=== PATIENT | male | born 2005 | race African-American/Black ===

== ENCOUNTER 2024-11-22 14:04 | Emergency (ER) | payer BC, SELFPAY ==
[2024-11-22 14:05] VITALS: BP 124/77; PULSE 59; RESP 16; TEMP 36.2; O2SAT 99; BMI 25.8
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
== END 2024-11-22 17:57 | disposition home or self-care (01) ==
PROVIDERS: Emergency Provider Surgery; Visit Provider Surgery
DX: S32.039A Unspecified fracture of third lumbar vertebra, initial encounter for closed fracture (principal); V43.52XA Car driver injured in collision with other type car in traffic accident, initial encounter
CPT/HCPCS: 72131; 99282

== ENCOUNTER 2024-12-07 18:53 | Emergency (ER) | payer BC, SELFPAY ==
[2024-12-07 18:53] VITALS: BP 152/83; PULSE 79; RESP 16; TEMP 36.3; O2SAT 100; BMI 25.0
--- NOTE | 2024-12-07 19:08 | EKG12_ITS ---
Test Reason : CP Blood Pressure : */* mmHG Vent. Rate : 68 BPM Atrial Rate : 68 BPM P-R Int : 136 ms QRS Dur : 86 ms QT Int : 356 ms P-R-T Axes : 50 88 14 degrees QTcB Int : 378 ms Normal sinus rhythm Nonspecific T wave abnormality Abnormal ECG Confirmed by Venkat Alegria ([id number]), news videotape editor LORNE MOSES ([id number]) on 12/09/2024 10:59:06 AM Referred By: Confirmed By: Venkat Alegria
--- NOTE | 2024-12-07 19:09 | ED.VIS.CHEST ---
HPI History of Present Illness Chief Complaint: Chest Pain Detail of Chief Complaint: Chest pain Informant: patient Narrative Narrative: Patient presents with chest pain that started around 2 PM today. Describes a sharp pain in the center of his chest with deep breath. He tries to manage his breathing to help with the discomfort. He has had this type of discomfort since he was tachycardia patient denies recent surgery. He denies recent illness history of some but does not take any medications for it. PFSH PFSH Home Medications ?Medication ?Instructions ?Recorded ?Last Taken ?Type NK 12/02/24 Unknown History naproxen 500 mg tablet 500 mg PO BID #14 tabs 12/07/24 Unknown Rx Allergy/AdvReac Type Severity Reaction Status Date / Time No Known Allergies Allergy Verified 12/02/24 14:38 Social History (Updated 12/02/24 @ 14:40 by Eloina Gomez) Smoking Status: Former smoker alcohol intake: current alcohol intake frequency: holidays/special occasions only substance use type: marijuana and other details: has used marijuana in the past ROS ROS ED Review of Systems ROS Unobtainable: other Constitutional Constitutional ED: Reports lethargy; Denies chills, fever(s), sweats or weight loss Eyes Eyes: Denies blurry vision, change in vision or diplopia ENT ENT ED: Denies rhinorrhea or sore throat Cardiovascular Cardiovascular: Reports chest pain; Denies orthopnea or racing heartbeat Respiratory/Chest Respiratory/Chest: Denies cough, dyspnea, dyspnea on exertion, orthopnea or sputum Gastrointestinal Gastrointestinal: Denies abdominal pain, diarrhea, nausea or vomiting Genitourinary Genitourinary ED: Denies dysuria, hematuria or urinary frequency Musculoskeletal Musculoskeletal: Denies arthralgias, back pain, myalgias or neck pain Integumentary Denies abscess, Abrasions or rash Neurologic Neurologic: Denies headache(s) or weakness Psychiatric Psychiatric: Denies anxiety, depression or suicidal thoughts Endocrine Endocrinology: Denies polydipsia, polyphagia or polyuria Hematologic/Lymphatic Hematologic/Lymphatic: Denies easy bleeding, easy bruising or lymphadenopathy Allergic/Immunologic Allergic/Immunologic ED: Denies mouth swelling, tongue swelling or urticaria EXAM Physical Exam Const Vital Signs: 12/07/24 18:53 12/07/24 19:37 Temperature 97.4 F L Temperature Source Temporal Pulse Rate 79 Respiratory Rate 16 Respiratory Effort Normal Non-Labored Blood Pressure 152/83 H Blood Pressure Mean 106 Pulse Ox 100 Oxygen Delivery Method Room Air Positive well nourished and well developed General Appearance ED: well developed and NAD HEENT Reports TM's clear and moist mucous membranes normocephalic and atraumatic; Negative for trauma or tenderness Tympanic Membrane ED: Yes TM's clear Eyes PERRL and EOMs intact bilaterally General Eye ED: Negative for pale conjunctiva or scleral icterus Neck no lymphadenopathy, supple and no JVD General: Negative for tenderness Chest Wall inspection of chest normal and palpation of chest normal Chest: Negative for tenderness Resp normal respiratory effort and clear to auscultation bilaterally Effort and Inspection: Negative for respiratory distress or pain with movement Auscultation: Negative for rhonchi, wheezes or diminished lung sounds Cardio regular rate, regular rhythm, S1 normal heart sound, S2 normal heart sound and no murmurs Peripheral Pulses: pulses 2+ throughout GI normal to inspection, nondistended, normoactive bowel sounds, soft to palpation, non-tender, non-distended and no masses Back/Spine no CVA tenderness and no thoracic nor lumbar tenderness Extremity normal to inspection General Extremety ED: Negative for edema General Extremity: Negative for edema Neuro oriented x3, CN's II-XII intact bilaterally, no sensory deficits noted and gait normal Sensorium / Orientation: awake, alert, oriented to person, oriented to place and oriented to time Motor Exam: strength 5/5 throughout and strength abnormal Psych mental status grossly normal Skin no rashes or lesions noted and no wounds MDM MDM MDM Narrative Medical decision making narrative: Patient presents with chest pain it has been intermittent since he has been a young child. Describes a sharp pain with breathing. Denies any trauma to his chest. Denies recent travel or surgery. He goes to college at [employer] here but lives in [place]. EKG obtained on arrival showed sinus rhythm with ventricular rate of 68 bpm with no acute ST segment changes. CBC with differential showed a white count 6.9 with hemoglobin 14.6 and platelet count of 217. Sed rate was normal at less than 1. D-dimer was negative. 1 view chest x-ray obtained interpreted by myself as no evidence of infiltrate or pneumothorax or acute disease process. While in the department he did receive Toradol 30 mg IV. He did feel improved afterwards and is pain seems to have resolved. Lab Data Attestation: I reviewed the patient's lab results. Labs: Laboratory Results - last 24 hr 12/07/24 12/07/24 12/07/24 19:33 19:33 20:00 WBC Cancelled 6.9 Corrected WBC Cancelled RBC Cancelled 4.60 Hgb Cancelled 14.6 Hct Cancelled 42.1 MCV Cancelled 91.5 MCH Cancelled 31.7 MCHC Cancelled 34.7 RDW Std Deviation Cancelled 40.8 RDW Coeff of Cassandra Cancelled 12.2 Plt Count Cancelled 217 MPV Cancelled 11.5 Immature Gran % (Auto) Cancelled 0.100 Neut % (Auto) Cancelled 55.1 Lymph % (Auto) Cancelled 37.0 [place] % (Auto) Cancelled 6.7 Eos % (Auto) Cancelled 0.7 Baso % (Auto) Cancelled 0.4 Absolute Neuts (auto) Cancelled 3.8 Absolute Lymphs (auto) Cancelled 2.55 Total Counted Cancelled Neutrophils % (Manual) Cancelled Band Neutrophils % Cancelled Lymphocytes % (Manual) Cancelled Monocytes % (Manual) Cancelled Eosinophils % (Manual) Cancelled Basophils % (Manual) Cancelled Metamyelocytes % Cancelled Myelocytes % Cancelled Promyelocytes % Cancelled Blast Cells % Cancelled Plasma Cell % (Manual) Cancelled Other Cells % Cancelled Nucleated RBC % Cancelled 0 Nucleated RBCs/100 WBC Cancelled Differential Comment Cancelled Diff Path Review Cancelled Hypersegmented Neuts Cancelled Atypical Lymphocytes Cancelled Reactive Lymphocytes Cancelled Smudge Cells Cancelled Toxic Granulation Cancelled Toxic Vacuolation Cancelled Dohle Bodies Cancelled Marifer Rods Cancelled Platelet Estimate Cancelled Plt Morphology Comment Cancelled RBC Morphology Cancelled Cancelled Polychromasia Cancelled Hypochromasia Cancelled Basophilic Stippling Cancelled Anisocytosis Cancelled Microcytosis Cancelled Macrocytosis Cancelled Spherocytes Cancelled Sickle Cells Cancelled Target Cells Cancelled Tear Drop Cells Cancelled Ovalocytes Cancelled Stomatocytes Cancelled [place] Bodies Cancelled Jacob Cells Cancelled Bite Cells Cancelled Crenated Cell Cancelled Acanthocytes (Spur) Cancelled Rouleaux Cancelled Schistocytes Cancelled ESR Cancelled < 1 D-Dimer Quant (PE/DVT) 0.27 Radiography Diagnostic Testing: Clinical Impression(s) from Imaging Studies Chest X-Ray 12/07/24 19:30 IMPRESSION: NEGATIVE CHEST. Reading Location: [facility] 1 view chest x-ray obtained interpreted by myself as no evidence of infiltrate or pneumothorax or acute disease process. Radiology in agreement. EKG Initial EKG: Attestation: I personally reviewed and interpreted this EKG as follows: Comments: Sinus rhythm with ventricular rate of 68 bpm with no acute ST segment change Discharge Plan Triage Chief Complaint: Chest Pain ED Provider: Andres Ny Dx/Rx/DC Orders Clinical Impression: Chest pain, Pleurisy Instructions: ED Chest Pain, Uncertain Cause, ED Pleurisy Prescriptions: New naproxen 500 mg tablet 500 mg PO BID Qty: 14 0RF No Action NK Primary Care Provider: Care Physician,No Primary Referrals: Abdirahman Pleitez MD [Med Staff - Active Staff] - 3-5 Days Care Physician,No Primary [Primary Care Provider] - Print Language: Sami Disposition Disposition: Home, Self Care
[2024-12-07] MEDS: Ketorolac 30 MG/ML Syringe IV (19:27)
--- NOTE | 2024-12-07 19:30 | RAD_ITS ---
PROCEDURE: CHEST 1 VIEW (PORTABLE) REASON FOR EXAM: Chest pain. TECHNIQUE: Frontal view of the chest. COMPARISON: None FINDINGS: The heart size is normal. The lungs are clear. RAD/Chest 1 View (Portable) IMPRESSION: NEGATIVE CHEST. Reading Location: [facility]
[2024-12-07 20:10] LABS: Absolute Lymphocyte Count 2.55 X10^3/uL (0.83-4.51); Absolute Neutrophil Count 3.8 X10^3/uL (2.0-7.7); Basophil# 0.03 X10^3/uL; Basophil% 0.4 % (0-1); Eosinophil# 0.05 X10^3/uL; Eosinophils% 0.7 % (0-5); Hematocrit 42.1 % (40-54); Hemoglobin 14.6 g/dL (13.0-16.5); Lymphocyte # 2.55 X10^3/ul (0.83-4.51); Mean Corp Hgb Conc 34.7 g/dL (32-36); Mean Corpuscular Hgb 31.7 pg (27.0-32.0); Mean Corpuscular Volume 91.5 fL (80-94); Mean Platelet Vol. 11.5 fl (6.2-12.0); Monocyte# 0.46 X10^3/uL; Monocyte% 6.7 % (0-10); NRBC Flagged by Analyzer 0 % (0-5); Neutrophil % 55.1 % (47-70); Platelet Count 217 K/mm3 (150-450); RBC Distribution Width CV 12.2 % (11.6-14.6); RBC Distribution Width SD 40.8 fl (35.1-43.9); White Blood Count 6.9 K/mm3 (4.4-11.0)
[2024-12-07 20:16] LABS: D-Dimer Quantitative (DVT/PE) 0.27 FEU/ug/m (0.27-0.49)
[2024-12-07 20:33] LABS: Erythrocyte Sedimentation Rate < 1 mm/hr (0-20)
[2024-12-07 20:56] VITALS: BP 142/83; PULSE 73; RESP 16; TEMP 36.2; O2SAT 100
== END 2024-12-07 20:59 | disposition home or self-care (01) ==
PROVIDERS: Emergency Provider Emergency Medicine; Visit Provider Emergency Medicine
DX: R07.9 Chest pain, unspecified (principal); R09.1 Pleurisy; Z87.891 Personal history of nicotine dependence
CPT/HCPCS: 71045; 85025; 85379; 85652; 93005; 96374; 96376; 99284; A4216